=== PATIENT | female | born 1970 | race Caucasian/White ===

== ENCOUNTER 2021-01-25 07:20 | Day surgery (SDC) | payer OTHER ==
[~2021-01-25] VITALS: Ht 170.2 cm; Wt 102.0 kg
[2021-01-25 09:12] VITALS: BP 123/76
[2021-01-25 14:16] VITALS: BP 128/84
== END 2021-01-25 14:31 ==
LOC: DS 07:20 → GI 14:00 → DS 14:00
PROVIDERS: ATTEND Internal Medicine Gastroenterology
DX: Z12.11 Encounter for screening for malignant neoplasm of colon (principal); D12.4 Benign neoplasm of descending colon; K57.30 Diverticulosis of large intestine without perforation or abscess without bleeding; K64.1 Second degree hemorrhoids; K74.60 Unspecified cirrhosis of liver; R18.8 Other ascites; K76.6 Portal hypertension; Z90.710 Acquired absence of both cervix and uterus; Z79.82 Long term (current) use of aspirin
CPT/HCPCS: 43235; 45378; J1200; J1610; J2250; J2310; J3010; J3490